=== PATIENT | female | born 1985 | race Caucasian/White ===

== ENCOUNTER 2024-09-11 13:24 | Outpatient (AMB) | payer OTHER, SELFPAY ==
--- NOTE | 2024-09-11 13:25 | GYNCLNT_ITS ---
Allergies/Home Meds Allergies & Medications Allergies No Known Allergies Allergy (Verified 09/11/24 13:25) Medication Reconciliation norgestimate 0.25 mg-ethinyl estradiol 0.035 mg tablet (Marisa) 1 tab PO QDAY #84 tabs 06/14/24 [Rx Confirmed 09/11/24] Intake Visit Data Collection New Patient or Established: Established Patient (seen at [facility] within 3 years) Reason for Visit:: DISCUSS PAP RESULTS Consent obtained for Telemed Visit: Yes Seen by Clinical Staff ONLY (RN/MA): No International Banker Required: No Do You Feel Safe at Home: Yes Authorities Contacted: N/A PCP or OBGYN visit in last 3 months: Yes Hx Now: No Are you currently on any form of Control: Yes Pain Present Currently: Yes Pain Location: Back Pain Scale Used: Parkinson-Haynes/Numerical Pain scale:: 1 Smoking Status Smoking Status: Never smoker For Telemed visit only Telemed Video/Phone Visit: Yes Verbal consent obtained for Telemed visit?: Yes 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 History Menstrual regularity: irregular Flow: light Monthly: No Age at menarche: 13 Currently sexually active: No If not currently sexually active, have you ever been sexually active: Yes 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 1. Little interest or pleasure in doing things: not at all 2. Feeling down, depressed, or hopeless: not at all Total score: 0 PHQ-9 3. Trouble falling or staying asleep, or sleeping too much: Not at all 4. Feeling tired or having little energy: Not at all 5. Poor appetite or overeating: Not at all 6. Feeling bad about yourself - or that you are a failure or have let yourself or your family down: Not at all 7. Trouble concentrating on things, such as reading the newspaper or watching television: Not at all 8. Moving or speaking so slowly that other people could have noticed? - Or the opposite - being so fidgety or restless that you have been moving around a lot more than usual: not at all 9. Thoughts that you would be better off or of hurting yourself in some way: Not at all Total score: 0 Source: Developed by Drs. Michel Welsh, Angelica Mathias, Travis Martinez and colleagues, with an educational prasanna from [employer]. 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 She has a 11 y/o son. Tobacco History Smoking Status: Never smoker Second Hand Smoke Exposure: No Alcohol History Alcohol Intake: Never Domestic Abuse History Do You Feel Safe at Home: Yes History of Present Illness HPI Narrative Patient was scheduled for telemed but this was not performed. Shira, my medical affairs specialist, called the patient as I was running behind in clinic and explained to the patient her results. Patient has a normal Pap smear dated June 14, 2024. She is positive for HPV. Her gonorrhea and Chlamydia are negative. Patient understands she will need a repeat Pap smear in 1 year. She understands she does not need a colposcopy or other biopsies cryotherapy or any other gynecological procedures at this time. All questions were answered through my medical affairs specialist Shira. Again a tele medicine consult was not performed today. Results Objective Laboratory: Pap normal at [facility] from June 14, 2024 positive HPV mRNA ECC\B7. GC chlamydia negative. Office Procedures OB Clinic LOC & Office Proc's Nursing/Assessment Patient Status: Established Patient OB Clinic Nursing Assessment: Medication Reconciliation, Update PMH in EMR and Vital Signs OB Clinic Coordination of Care: Complex Care and Chronic Disease 1-5, Consent,records obtained, informed consent, Education Simp Pt/Fam, Results/Orders obtained and Staff clarify orders Established Patient Charge Established Patient Point Assignment: 90 Telehealth If patient is seen using Teleconference methods, complete New/Est section, but DO NOT tata points only tata the correct Telemed visit type Telemed Phone/Video with patient at home & Dr,PA,DIGITAL COMPUTER SYSTEMS ANALYST: Yes Assessment & Plan Diagnosis / Problem List (1) HPV exposure: Status: Acute Assessment and Plan: Pap normal 06/14. Repeat HPV testing and Pap smear in 1 year.
== END 2024-09-11 14:19 | disposition home or self-care (01) ==
LOC: HODSOBC 13:24
PROVIDERS: Supervising Provider Obstetrics & Gynecology; Visit Provider Obstetrics & Gynecology
DX: R87.810 Cervical high risk human papillomavirus (HPV) DNA test positive (principal)
CPT/HCPCS: 99212; G0463